=== PATIENT | female | born 1990 | race Caucasian/White ===

== ENCOUNTER 2018-06-07 14:04 | Emergency (ER) | payer BC ==
--- OUTSIDE RECORDS SUMMARY | 2018-06-07 15:55 | XMS REPORT | Continuity of Care Document ---
:1990 External Reference #:[id number] Author Name Dawna Combs Care Team Providers Name Role Phone Wm Davila III, MD Primary Care Physician Unavailable Payers Type Date Identification Numbers Payment Provider Subscriber Policy Number: [id number] Agusto Ledbetter PayID: [id number] [address] [address] [place] [address] Effective: 2016 Policy Number: [id number] Agusto Ledbetter Expires: 2018 PayID: [id number] [address] [address] [place] [address] Effective: 2014 Policy Number: [id number] BS Agusto Ledbetter Expires: 2016 PayID: [id number] [address] [address] [place] [address] Advance Directives Description No Information Available Problems Date Description Provider Status Onset: 07/21/2012 Disorder of ear Shelley Villar M.D. 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[place] [place] Tobacco Use Start: Unknown Never Smoked Cigarettes Smoking Status Reviewed: 05/10/18 Never Smoked Cigarettes ETOH Use Currently consumes alcohol 5 drinks/week Tobacco Use Start: Unknown Patient has never smoked Recreational Drug Use Denies Drug Use Exercise Type/Frequency 3 xper week, jogging or gym Allergies, Adverse Reactions, Alerts Date Description Reaction Status Severity Comments 06/30/2012 Amoxicillin Anaphylaxis, Contact dermatitis Active 09/01/2017 [place] Active Medications Medication Date Status Form Strength Qnty SIG Indications Ordering Provider Nitrofurantoin 05/10/ Active Capsules 100mg 10cap take one N39.0 Cindy Monohyd Macro 2019 s tablet MD Chadd every 12 hours IUD / Active Unknown 0000 Pantoprazole 07/26/ Hx Tablets DR 20mg 60tab take 2 K21.9 Leno Sodium 2018 - s tablets RAMONE Sweet 05/09/ by mouth 2019 one time daily Erythromycin 05/11/ Hx Tablets 500mg 90tab not Unknown Base 2016 - s taking 2015 Fluticasone 05/11/ Hx Suspension 50mcg/Act 16gm two Leno Propionate 2016 - sprays RAMONE Sweet 2017 nostril once daily Juab-Linyah 12/13/ Hx Tablets 0.25-35mg 28tab 1 by Shelley 2014 - -mcg s mouth Jian, 01/29/ every day M.D. 2015 Ortho-Cyclen 07/31/ Hx Tablets 0.25-35mg 30tab as V25.09 Shelley (28) 2014 - -mcg s directed Jian 12/13/ M.D. 2014 Trazodone HCL 03/09/ Hx Tablets 50mg 30tab /2 -1 780.52 Shelley 2012 - s tab po at Jian, 10/03/ bedtime M.D. 2013 prn Ortho Evra / Hx Patches 150-20mcg 1unit apply one Shelley 0000 - Weekly /24HR s patch Jian, 12/13/ weekly M.DHarrison 2014 for three weeks then off for one week then repeat Benadryl Allergy / Hx Tablets 25mg 1 q4 h Unknown 0000 - prn 2013 Vitamin B / Hx Tablets 1 by Unknown Complex 0000 - mouth 05/09/ every day 2019 Vitamin D3 /00/ Hx Unknown 0000 - 2016 Lo Loestrin Fe / Hx Tablets 1mg-10 Unknown 0000 - mcg / 10 mcg 2016 Nuvaring / Hx Ring 0.12-0.01 Grzegorz Nava 0000 - 5mg/24HR maria g, 05/09/ N.P. 2019 Nasacort Allergy / Hx Aerosol 55mcg/Act 2 spray Unknown 24HR 0000 - both nares 2019 once daily Xyzal Allergy / Hx Tablets 5mg 1 by Unknown 24HR 0000 - mouth every day 2019 Medications Administered in Office Medication Date Status Form Strength Qnty SIG Indications Ordering Provider Triamcinolone 07/14/ Administered Injection Zaneb (Kenalog) 2016 MD Meet PPD 04/28/ Administered Injection Nurse 2015 Visit A Triamcinolone 12/12/ Administered Injection Zaneb (Kenalog) 2015 MD Meet PPD 10/13/ Administered Injection Nurse 2016 Visit [facility] Immunizations CPT Code Status Date Vaccine Lot # [id number] Given 11/15/2015 Measles Mumps And Rubella MMR [id number] 81262 Given 10/18/2015 Measles Mumps And Rubella MMR [id number] 13293 Given 10/11/2015 Tetanus And Diptheria (Td) For Adult Use [id number] Preservative Free 52719 Given 12/20/2008 Hepatitis A Vaccine Adult Dosage 72496 Given 12/13/2007 Varicella (Chicken Pox) Immunization 22883 Given 12/13/2007 Hepatitis A Vaccine Adult Dosage 28653 Given 06/29/2007 Gardasil (HPV) 40901 Given 02/25/2007 Gardasil (HPV) 26005 Given 12/09/2006 Gardasil (HPV) 87744 Given 11/18/2004 DTaP Vaccine Younger Than 7 75575 Given 10/21/2004 Tdap - Tetanus/Diptheria/Acellular Pertussis 57811 Given 10/21/2004 Meningitis MCV4 MenACWY Meningococcal Conjugate Vaccine 92848 Given 01/02/1997 Varicella (Chicken Pox) Immunization 84922 Given 11/14/1996 IPV/Poliomyelitis Immunization 62665 Given 11/14/1996 Measles Mumps And Rubella MMR 33563 Given 03/19/1993 Hep B Pediatric/Adolescent 95561 Given 12/18/1992 Measles Mumps And Rubella MMR 09679 Given 12/18/1992 Hib Hboc Conjugate 4 Dose Schedule 54956 Given 10/16/1992 Hep B Pediatric/Adolescent 45830 Given 09/18/1992 Hep B Pediatric/Adolescent 36929 Given 05/22/1992 Hib Hboc Conjugate 4 Dose Schedule 77798 Given 03/20/1992 Hib Hboc Conjugate 4 Dose Schedule 30234 Given 01/17/1992 Hib Hboc Conjugate 4 Dose Schedule Vital Signs Date Vital Result Comment 05/10/2018 2:35pm Height 66 inches 5'6" Weight 156.00 lb Heart Rate 80 /min BP Systolic 116 mmHg BP Diastolic 70 mmHg Body Temperature 98.6 F O2 % BldC Oximetry 98 % BMI (Body Mass Index) 25.2 kg/m2 09/01/2017 8:40am Weight 163.50 lb Heart Rate 74 /min BP Systolic 107 mmHg BP Diastolic 72 mmHg Body Temperature 97.3 F O2 % BldC Oximetry 100 % 07/26/2017 9:00am Weight 162.75 lb Heart Rate 74 /min BP Systolic 112 mmHg BP Diastolic 62 mmHg Body Temperature 97.0 F O2 % BldC Oximetry 99 % 03/03/2017 9:31am Height 66 inches 5'6" Weight 155.50 lb Heart Rate 71 /min BP Systolic Sitting 98 mmHg BP Diastolic Sitting 68 mmHg O2 % BldC Oximetry 98 % BMI (Body Mass Index) 25.1 kg/m2 09/17/2016 7:54am Height 66 inches 5'6" Weight 155.00 lb Heart Rate 72 /min BP Systolic 102 mmHg BP Diastolic 68 mmHg Respiratory Rate 15 /min Pain Level 6 BMI (Body Mass Index) 25.0 kg/m2 07/14/2016 9:59am Height 66 inches 5'6" Weight 155.00 lb Respiratory Rate 14 /min Pain Level 5 BMI (Body Mass Index) 25.0 kg/m2 01/30/2016 4:55pm Weight 153.00 lb Heart Rate 79 /min BP Systolic Sitting 146 mmHg BP Diastolic Sitting 80 mmHg Body Temperature 98.6 F O2 % BldC Oximetry 98 % 12/13/2015 8:21am Height 65 inches 5'5" Weight 150.00 lb Pain Level 4 BMI (Body Mass Index) 25.0 kg/m2 11/15/2015 4:09pm Weight 150.00 lb Heart Rate 80 /min BP Systolic Sitting 129 mmHg BP Diastolic Sitting 81 mmHg Body Temperature 97.6 F 10/11/2015 9:35am Height 66 inches 5'6" Weight 149.00 lb Heart Rate 74 /min BP Systolic Sitting 110 mmHg BP Diastolic Sitting 68 mmHg Body Temperature 95.5 F O2 % BldC Oximetry 98 % BMI (Body Mass Index) 24.0 kg/m2 05/20/2015 4:47pm Height 65.25 inches 5'5.25" Weight 152.00 lb Heart Rate 73 /min BP Systolic Sitting 108 mmHg BP Diastolic Sitting 76 mmHg Body Temperature 98.1 F O2 % BldC Oximetry 98 % BMI (Body Mass Index) 25.1 kg/m2 12/13/2014 2:58pm Height 65.25 inches 5'5.25" Weight 155.00 lb Heart Rate 84 /min BP Systolic 118 mmHg BP Diastolic 70 mmHg Body Temperature 98.6 F O2 % BldC Oximetry 98 % BMI (Body Mass Index) 25.6 kg/m2 07/31/2014 8:56am Height 65.25 inches 5'5.25" Weight 150.75 lb Heart Rate 80 /min BP Systolic Sitting 110 mmHg BP Diastolic Sitting 60 mmHg Respiratory Rate 12 /min Body Temperature 96.4 F O2 % BldC Oximetry 99 % BMI (Body Mass Index) 24.9 kg/m2 12/12/2013 11:01am Height 65.25 inches 5'5.25" Weight 139.25 lb Heart Rate 91 /min BP Systolic Sitting 102 mmHg BP Diastolic Sitting 63 mmHg BMI (Body Mass Index) 23.0 kg/m2 10/03/2013 4:18pm Height 65.25 inches 5'5.25" Weight 138.00 lb Heart Rate 81 /min BP Systolic Sitting 138 mmHg BP Diastolic Sitting 69 mmHg BMI (Body Mass Index) 22.8 kg/m2 03/09/2013 3:47pm Weight 140.00 lb Heart Rate 81 /min BP Systolic Sitting 118 mmHg BP Diastolic Sitting 72 mmHg 02/03/2013 11:35am Weight 138.00 lb Heart Rate 78 /min BP Systolic Sitting 100 mmHg BP Diastolic Sitting 78 mmHg 07/21/2012 2:10pm Height 65 inches 5'5" Weight 140.00 lb Heart Rate 78 /min BP Systolic Sitting 100 mmHg BP Diastolic Sitting 70 mmHg BMI (Body Mass Index) 23.3 kg/m2 06/30/2012 2:38pm Height 65 inches 5'5" Weight 139.00 lb Heart Rate 79 /min BP Systolic Sitting 112 mmHg BP Diastolic Sitting 61 mmHg BMI (Body Mass Index) 23.1 kg/m2 Results Test Date Facility Test Result H/L Range Note Ua Routine 05/10/2018 [facility] Ua Specific [place] 1.000 Ua PH 7 Ua Color light yellow Ua Appera clear Ua WBC neg Ua Protein neg Ua Glucose neg Ua Ketones neg Ua Bilirubin neg Ua Urobilinogen neg Ua Nitrite neg Ua Occult Blood neg Laboratory test 10/27/2017 [facility] Surgical SEE RESULT 1 , [address] [place] [address] [phone] CBC Auto Diff 07/26/2017 [facility] White Blood 6.1 10^3/uL N 3.5-[address] Count 0.8 [place] [address] [phone] Red Blood Count 4.58 10^6/uL N 4.0-5.4 Hemoglobin 14.2 g/dL N 12.0-16.0 Hematocrit 42 % N 35-47 Mean Corpuscular Volume 92 fL N 80-97 Mean Corpuscular Hemoglobin 31 pg N 27-31 Mean Corpuscular HGB Conc 34 g/dL N 31-36 Red Cell Distribution Width 13 % N 10.5-15 Platelet Count 275 10^3/uL N 150-450 Mean Platelet Volume 8.8 um3 N 7.4-10.4 Abs Neutrophils 3.0 10^3/uL N 1.5-7.7 Abs Lymphocytes 2.4 10^3/uL N 1.0-4.8 Abs Monocytes 0.6 10^3/uL N 0-0.8 Abs Eosinophils 0.1 10^3/uL N 0-0.6 Abs Basophils 0 10^3/uL N 0-0.2 Abs Nucleated RBC 0 10^3/uL Granulocyte % 49.3 % N 38-83 Lymphocyte % 38.5 % N 25-47 Monocyte % 10.0 % High 0-7 Eosinophil % 1.6 % N 0-6 Basophil % 0.6 % N 0-2 Nucleated Red Blood Cells % 0.1 Comp Metabolic Panel 07/26/2017 [facility] Sodium 137 mmol/L N 133-[address] [place] [address] [phone] Potassium 4.4 mmol/L N 3.5-5.0 Chloride 107 mmol/L N 101-111 Co2 Carbon Dioxide 25 mmol/L N 22-32 Anion Gap 5 mmol/L N 2-11 Glucose 89 mg/dL N 70-100 Blood Urea Nitrogen 12 mg/dL N 6-24 Creatinine 0.77 mg/dL N 0.51-0.95 BUN/Creatinine Ratio 15.6 N 8-20 Calcium 9.4 mg/dL N 8.6-10.3 Total Protein 7.0 g/dL N 6.4-8.9 Albumin 4.0 g/dL N 3.2-5.2 Globulin 3.0 g/dL N 2-4 Albumin/Globulin Ratio 1.3 N 1-3 Total Bilirubin 0.60 mg/dL N 0.2-1.0 Alkaline Phosphatase 59 U/L N 34-104 Alt 21 U/L N 7-52 Ast 24 U/L N 13-39 Egfr Non- 91.3 >60 Egfr 117.5 >60 4 Laboratory 07/26/2017 [facility] TSH (Thyroid Stim 2.49 N 0.34 -5.60 5 test finding Horm) mcIU/[place] [address] [phone] Lipid Profile 07/26/2017 [facility] Triglycerides 103 mg/dL 6 (Trig/Chol/HDL ) [place] [address] [phone] Cholesterol 170 mg/dL 7 HDL Cholesterol 60.0 mg/dL 8 LDL Cholesterol 89 mg/dL 9 Iron & Iron Binding 03/31/2016 [facility] Iron 69 g/dL N 50- [address] [place] [address] [phone] Unsaturated Iron Binding 299 g/dL N Total Iron Binding Capacity 368 g/dL N 250-450 % Iron Saturation 19 % N 15-55 Laboratory test 03/31/2016 [facility] T3 Free 3.30 pg/mL N 2.5 -3.9 [place] [address] [phone] T3 Total 1.16 ng/mL N 0.87-1.78 Ferritin 67.1 ng/mL N 11-307 Folic Acid (Folate) > 20.00 ng/mL N >3.99 Vitamin B12 316 pg/mL N 180-914 10 Vitamin D Total 25(Oh) 33.6 ng/mL N 30-50 Homocysteine 5 mcmol/L N 11 CBC Auto Diff 01/31/2016 [facility] White Blood 7.6 10^3/uL N 3.5-10.8 [place] [address] [phone] Red Blood Count 4.43 10^6/uL N 4.0-5.4 Hemoglobin 13.9 g/dL N 12.0-16.0 Hematocrit 41 % N 35-47 Mean Corpuscular Volume 93 fL N 80-97 Mean Corpuscular Hemoglobin 31 pg N 27-31 Mean Corpuscular HGB Conc 34 g/dL N 31-36 Red Cell Distribution Width 13 % N 10.5-15 Platelet Count 277 10^3/uL N 150-450 Mean Platelet Volume 9 um3 N 7.4-10.4 Abs Neutrophils 3.5 10^3/uL N 1.5-7.7 Abs Lymphocytes 3.3 10^3/uL N 1.0-4.8 Abs Monocytes 0.7 10^3/uL N 0-0.8 Abs Eosinophils 0.1 10^3/uL N 0-0.6 Abs Basophils 0.1 10^3/uL N 0-0.2 Abs Nucleated RBC 0 10^3/uL N Granulocyte % 46.0 % N 38-83 Lymphocyte % 42.7 % N 25-47 Monocyte % 9.5 % High 1-9 Eosinophil % 1.1 % N 0-6 Basophil % 0.7 % N 0-2 Nucleated Red Blood Cells % 0 N Comp Metabolic Panel 01/31/2016 [facility] Sodium 137 mmol/L N 133-[address] [place] [address] [phone] Potassium 3.9 mmol/L N 3.5-5.0 Chloride 104 mmol/L N 101-111 Co2 Carbon Dioxide 27 mmol/L N 22-32 Anion Gap 6 mmol/L N 2-11 Glucose 85 mg/dL N 70-100 Blood Urea Nitrogen 14 mg/dL N 6-24 Creatinine 0.84 mg/dL N 0.51-0.95 BUN/Creatinine Ratio 16.7 N 8-20 Calcium 9.3 mg/dL N 8.6-10.3 Total Protein 7.2 g/dL N 6.4-8.9 Albumin 4.2 g/dL N 3.2-5.2 Globulin 3.0 g/dL N 2-4 Albumin/Globulin Ratio 1.4 N 1-3 Total Bilirubin 0.50 mg/dL N 0.2-1.0 Alkaline Phosphatase 54 U/L N 34-104 Alt 20 U/L N 7-52 Ast 20 U/L N 13-39 Egfr Non- 83.3 N >60 Egfr 107.1 N >60 12 Laboratory test 01/31/2016 [facility] Erythrocyte Sed 3 mm/Hr N 0-[address] [place] [address] [phone] Laboratory test 01/31/2016 [facility] C Reactive < 1.00 N < 5.00 [address] Protein mg/[place] [address] [phone] Lyme Disease Serology Negative N Negative 14 Free T4 (Free Thyroxine) 0.95 ng/dL N 0.61-1.12 TSH (Thyroid Stim Horm) 1.31 mcIU/mL N 0.34-5.60 Urinalysis Profile 01/31/2016 [facility] Urine Color Yellow N [address] [place] [address] [phone] Urine Appearance Cloudy N Urine Specific [place] 1.011 N 1.010-1.030 Urine pH 7.0 N 5-9 Urine Urobilinogen Negative N Negative Urine Ketones Negative N Negative Urine Protein Negative N Negative Urine Leukocytes Negative N Negative Urine Blood Negative N Negative Urine Nitrite Negative N Negative Urine Bilirubin Negative N Negative Urine Glucose Negative N Negative Connective Tissue 01/31/2016 [facility] Anti-Nuclear 0.3 U N [address] [place] [address] [phone] Cyclic Citrullinated Peptide <15.6 U N 16 Interpretation See Comment N 17 Varicella 10/14/2015 [facility] Varicella-Zoster IgG Positive N 18 Zoster Igg AB [address] [place] [address] [phone] Varicella IgG Antibody Index 1.8 N 19 Rubeola Measles 10/14/2015 [facility] Rubeola (Measles) Negative N 20 Igg AB [address] [place] [address] [phone] Rubeola IgG Antibody Index 0.8 N 21 Mumps Virus AB 10/14/2015 [facility] Mumps Virus IgG Positive N 22 Igg & Igm [address] [place] [address] [phone] Mumps IgG Antibody Index 2.7 N 23 Mumps Virus IgM Antibody Negative N Negative Mumps IgM Antibody Index 0.09 N 0.00-0.79 Laboratory 10/14/2015 [facility] Rubella Screen Immune N Immune test finding [address] IU/[place] [address] [phone] Celiac Panel 12/13/2014 Tissue <1.2 U/mL N 24 Transglutaminase IgA Ab Immunoglobulin A 220 mg/dL N 61 - 356 Celiac Interpretation See Comment N 25 Laboratory test 12/13/2014 [facility] Cytology SEE RESULT BELOW [address] [place] [address] [phone] Gardnerella/Yeast: Vaginal Dna SEE RESULT BELOW 27 Trichomonas Vaginalis Rna Negative N Negative 28 GC/Chlamydia 12/13/2014 [facility] Chlamydia Negative N Negative Amplified Rna [address] [place] [address] [phone] Neisseria gonorrhoeae (GC) Rna Negative N Negative 29 Laboratory test 12/13/2014 HIV 1&2 AB Nonreactive N Nonreactive 30 finding Self Referred Laboratory test 12/07/2014 [facility] Vitamin D 30.7 ng/mL N 30-[address] Total 25(Oh) [place] [address] [phone] CBC Auto Diff 09/12/2014 [facility] White Blood 6.0 10^3/uL N 4.8-10.[address] [place] [address] [phone] Red Blood Count 4.41 10^6/uL N 4.0-5.4 Hemoglobin 14.3 g/dL N 12.0-16.0 Hematocrit 42 % N 35-47 Mean Corpuscular Volume 94 fL N 80-97 Mean Corpuscular Hemoglobin 32 pg High 27-31 Mean Corpuscular HGB Conc 35 g/dL N 31-36 Red Cell Distribution Width 13 % N 10.5-15 Platelet Count 241 10^3/uL N 150-450 Mean Platelet Volume 10 um3 N 7.4-10.4 Abs Neutrophils 2.8 10^3/uL N 1.5-7.7 Abs Lymphocytes 2.3 10^3/uL N 1.0-4.8 Abs Monocytes 0.6 10^3/uL N 0-0.8 Abs Eosinophils 0.2 10^3/uL N 0-0.6 Abs Basophils 0.1 10^3/uL N 0-0.2 Abs Nucleated RBC 0 10^3/uL N Granulocyte % 46.9 % N 38-83 Lymphocyte % 38.9 % N 25-47 Monocyte % 10.4 % High 1-9 Eosinophil % 2.7 % N 0-6 Basophil % 1.1 % N 0-2 Nucleated Red Blood Cells % 0.1 N Comp Metabolic Panel 09/12/2014 [facility] Sodium 138 mmol/L N 133-[address] [place] [address] [phone] Potassium 4.2 mmol/L N 3.5-5.0 Chloride 106 mmol/L N 101-111 Co2 Carbon Dioxide 27 mmol/L N 22-32 Anion Gap 5 mmol/L N 2-11 Glucose 88 mg/dL N 70-100 Blood Urea Nitrogen 14 mg/dL N 6-24 Creatinine 0.85 mg/dL N 0.51-0.95 BUN/Creatinine Ratio 16.5 N 8-20 Calcium 9.4 mg/dL N 8.6-10.3 Total Protein 6.8 g/dL N 6.4-8.9 Albumin 4.1 g/dL N 3.2-5.2 Globulin 2.7 g/dL N 2-4 Albumin/Globulin Ratio 1.5 N 1-3 Total Bilirubin 0.60 mg/dL N 0.2-1.0 Alkaline Phosphatase 52 U/L N 34-104 Alt 14 U/L N 7-52 Ast 16 U/L N 13-39 Egfr Non- 83.6 N >60 Egfr 107.6 N >60 31 Iron & Iron Binding 09/12/2014 [facility] Iron 143 g/dL N 50 -[address] [place] [address] [phone] Unsaturated Iron Binding 234 g/dL N Total Iron Binding Capacity 377 g/dL N 250-450 % Iron Saturation 38 % N 15-55 Laboratory test 09/12/2014 [facility] CRP High 1.90 mg/L N [address] [place] [address] [phone] TSH (Thyroid Stimulating Horm) 2.20 ?IU/mL N 0.34-5.60 Free T4 0.74 ng/mL N 0.61-1.12 Free T3 2.90 pg/mL N 2.5-3.9 Ferritin 54.1 ng/mL N 11-307 Folate 13.16 ng/mL N >3.99 Vitamin B12 292 pg/mL N 180-914 33 Vitamin D Total 25(Oh) 27.2 ng/mL Low 30-50 Total T3 1.14 ng/mL N 0.87-1.78 Laboratory 12/12/2013 [facility] Cytology RUN DATE: 34 test finding [address] 12/14/ <[place] [address] NOTE> [phone] HIV 1/2 AB 12/12/2013 [facility] HIV 1 2 Nonreactive N Nonreactive [address] [place] [address] [phone] Laboratory 02/03/2013 [facility] TSH (Thyroid 1.02 miu/mL 0.34-5.60 test finding [address] [place] [address] Horm) [phone] CBC Auto Diff 02/03/2013 [facility] White Blood 7.7 10^3/uL 4.8-10.[address] [place] [address] [phone] Red Blood Count 4.37 10^6/uL 4.0-5.4 Hemoglobin 13.8 g/dL 12.0-16.0 Hematocrit 40 % 35-47 Mean Corpuscular Volume 93 fL 80-97 Mean Corpuscular Hemoglobin 32 pg High 27-31 Mean Corpuscular HGB Conc 34 g/dL 31-36 Red Cell Distribution Width 12 % 10.5-15 Platelet Count 225 10^3/uL 150-450 Mean Platelet Volume 10 um3 7.4-10.4 Abs Neutrophils 4.0 10^3/uL 1.5-7.7 Abs Lymphocytes 2.5 10^3/uL 1.0-4.8 Abs Monocytes 0.9 10^3/uL High 0-0.8 Abs Eosinophils 0.2 10^3/uL 0-0.6 Abs Basophils 0.1 10^3/uL 0-0.2 Abs Nucleated RBC 0 10^3/uL Granulocyte % 52.4 % 38-83 Lymphocyte % 32.4 % 25-47 Monocyte % 12.2 % High 1-9 Eosinophil % 2.1 % 0-6 Basophil % 0.9 % 0-2 Nucleated Red Blood Cells % 0 Laboratory test 07/21/2012 [facility] Affirm Vaginal (SEE NOTE) [address] [place] [address] [phone] Cytology RUN DATE: 07/22/ SEE NOTE> 37 1 [id number] 2 SEE RESULT BELOW Name: ALBINO LEDBETTER : [address]: Khadra Figueroa MD Acct: [id number] Unit: [id number] AGE: 27 Location: [facility] Re10/27/17 SEX: F Status: REG REF SPEC: [id number] FREDDIE: 10/27/17- SUBM DR: Khadra Figueroa MD REQ: [id number] RECD: 10/27/17-1305 STATUS: SONYA MORLEY DR: Leno Sweet [employer] _ ORDERED: LEVEL 4/2 COMMENTS: [id number] FINAL DIAGNOSIS 1. Skin, right anterior distal thigh, biopsy: -- Compound melanocytic nevus with architectural disorder and moderate cytologic atypia. -- The lesion is excised in the planes of sectioning examined. 2. Skin, right lateral breast, biopsy: -- Intradermal melanocytic nevus. -- Lesional cells focally extend to the biopsy base. 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 The specimen is received in formalin labeled, Right Anterior Distal Thigh, and consists of a 0.9 by up to 0.7 cm chang-pink ovoid skin shave with a central 0.4 x 0.3 cm variegated chang-brown macule. The specimen is inked, serially sectioned and entirely submitted in one cassette. 2. The specimen is received in formalin labeled, Right Lateral Breast, and consists of a 1.1 x 0.9 cm mottled chang-white ovoid wrinkled skin shave with a central chang- brown ill-defined lesion measuring up to 0.3 cm. The specimen is inked, serially sectioned and entirely submitted in one cassette. Signed by and Reported on: Marianne Bueno MD 10/28/17 1115 END OF REPORT DEPARTMENT OF PATHOLOGY, [address] [place] [address] Matias Chapin M.D. Director [facility] # [id number] 3 FASTING 10 HOUR 4 Because ethnic data is not always readily available, this report includes an eGFR for both -Americans and non- Americans. The National Kidney Disease Education Program (NKDEP) does not endorse the use of the MDRD equation for patients that are not between the ages of 18 and 70, are , have extremes of body size, muscle mass, or nutritional status, or are non- or non-. According to the National Kidney Foundation, irrespective of diagnosis, the stage of the disease is based on the level of kidney function: Stage Description GFR(mL/min/1.73 m(2)) 1 Kidney damage with normal or decreased GFR 90 2 Kidney damage with mild decrease in GFR 60-89 3 Moderate decrease in GFR 30-59 4 Severe decrease in GFR 15-29 5 Kidney failure <15 (or dialysis) 5 FASTING 10 HOUR 6 Desirable: <150 Borderline High: 150-199 High: 200-499 Very High: >500 7 Desirable: <200 Borderline High: 200-239 High: >239 8 Low: <40 Desirable: 40-60 High: >60 9 Desirable: <100 Near Optimal: 100-129 Borderline High: 130-159 High: 160-189 Very High: >189 10 Normal Range 180 to 914 Indeterminate Range 145 to 180 Deficient Range <145 11 REFERENCE VALUE <=13 (Fasting) Test Performed by: [place] [address] [employer]: Galen Dee II, M.D., Ph.D. 12 Because ethnic data is not always readily available, this report includes an eGFR for both -Americans and non- Americans. The National Kidney Disease Education Program (NKDEP) does not endorse the use of the MDRD equation for patients that are not between the ages of 18 and 70, are , have extremes of body size, muscle mass, or nutritional status, or are non- or non-. According to the National Kidney Foundation, irrespective of diagnosis, the stage of the disease is based on the level of kidney function: Stage Description GFR(mL/min/1.73 m(2)) 1 Kidney damage with normal or decreased GFR 90 2 Kidney damage with mild decrease in GFR 60-89 3 Moderate decrease in GFR 30-59 4 Severe decrease in GFR 15-29 5 Kidney failure <15 (or dialysis) 13 Acute inflammation: >10.00 14 Serologic response to B. burgdorferi infection is not detected, but cannot rule out early infection during which low or undetectable antibody levels to B. burgdorferi may be present. If clinically indicated, a new serum specimen should be submitted in 7-14 days. Test Performed by: [place] [id number] [employer]: Galen Dee II, M.D., Ph.D. 15 REFERENCE VALUE <=1.0 (Negative) 16 REFERENCE VALUE <20.0 (Negative) 17 Tests for antibodies to dsDNA and HAYLEY antigens are not performed automatically unless the FRIDA result is > or= 3.0 U. Studies performed at [facility] indicate that positive FRIDA results <3.0 U are rarely accompanied by positive second order tests. Test Performed by: [place] [address] [employer]: Galen Dee II, M.D., Ph.D. 18 Results suggest response to immunization or prior exposure to the virus. REFERENCE VALUE Vaccinated: Positive (>=1.1 AI) Unvaccinated: Negative (<=0.8 AI) 19 Test Performed by: [place] [address] [employer]: Galen Dee II, M.D., Ph.D. 20 REFERENCE VALUE Vaccinated: Positive (>=1.1 AI) Unvaccinated: Negative (<=0.8 AI) 21 Test Performed by: [facility] [place] [place] [address] [employer]: Galen Dee II, M.D., Ph.D. 22 Results suggest response to immunization or prior exposure to the virus. REFERENCE VALUE Vaccinated: Positive (>=1.1 AI) Unvaccinated: Negative (<=0.8 AI) 23 Test Performed by: [place] [address] [employer]: Galen Dee II, M.D., Ph.D. 24 REFERENCE VALUE <4.0 (Negative) Test Performed by: [place] [address] [employer]: Galen Dee II, M.D., Ph.D. 25 Negative serology. Celiac disease unlikely. However, approximately 10% of patients with celiac disease are seronegative. Also, patients who are already adhering to a gluten-free diet may be seronegative. If celiac disease is highly clinically suspected, consider HLA-DQ typing. Test Performed by: [place] [address] [employer]: Galen Dee II, M.D., Ph.D. 26 SEE RESULT BELOW Name: ALBINO LEDBETTER : [address]: Shelley Villar MD Acct: [id number] Unit: [id number] AGE: 24 Location: [facility] Re12/13/14 SEX: F Status: REG REF SPEC: [id number] FRDEDIE: 12/13/14-1522 [facility] DR: Shelley Villar MD REQ: [id number] RECD: 12/13/14 STATUS: SOUT _ ORDERED: IMAGE ANALYSIS, PAP SM PATH REV FINAL DIAGNOSIS EPITHELIAL CELL ABNORMALITIES Low grade squamous intraepithelial lesion (LSIL) Fungal organisms morphologically consistent with Melissa species A. Ectocervical/Endocervical Specimen Adequacy: Satisfactory of evaluation Transformation zone component identified Patient Information: HPV: Thin Layer Pap Test w/reflex to high risk HPV RNA testing when ASCUS Actual Specimen Date: 12/13/14 LMP If Unknown: 11/14 ?: N Post Menopausal?: N Hysterectomy?: N Previous Abnormal Pap Smears?:N Signed (signature on file) Marianne Bueno MD 9134 This Pap test was evaluated with the assistance of the [employer] Test Imaging System. Due to cytologic findings at the agricultural technician microscope, comprehensive manual rescreening by a Bridge Contractor may be required. The Pap Smear is a screening test designed to aid in the detection of premalignant and malignant conditions of the uterine cervix. It is not a diagnostic procedure and should not be used as the sole means of detecting cervical cancer. Both false- positive and false- negative reports do occur. Depending on your risk status, a Pap smear should be obtained and evaluated every 1-3 years. END OF REPORT * ML=Testing performed at Main Lab DEPARTMENT OF PATHOLOGY, [address] [place] [address] Matias Chapin M.D. Director [facility] # [id number] 27 SEE RESULT BELOW Name: ALBINO LEDBETTER : [address]: Shelley Villar MD Acct: [id number] Unit: [id number] AGE: 24 Location: [facility] Re12/13/14 SEX: F Status: REG REF SPEC: [id number] FREDDIE: 12/13/14-1522 [facility] DR: Shelley Villar MD REQ: [id number] RECD: 12/13/14 STATUS: COMP _ SOURCE: VAGINAL SPDESC: ORDERED: RadhaYeast DNA Procedure Result Verified Site Gardnerella/Yeast: Vaginal DNA Final 12/14/14- 1147 ML Organism 1 Negative Gardnerella Organism 2 POSITIVE MELISSA The presence of G. vaginalis, although suggestive, is not diagnostic for bacterial vaginosis. Results should be interpreted in conjuction with other clinical and laboratory data available. Women with vaginal discharge should be evaluated for risk factors of cervicitis and pelvic inflammatory disease, toxic shock syndrome (S.aureus), and if present, evaluated for organisms not included in this assay such as N. gonorrhoeae, C. trachomatis, Mobiluncus, Mycoplasma and/or Prevotella. Mixed infections may occur. The performance of this test on patient specimens collected during or immediately after antimicrobial therapy is unknown. The presence or absence of Melissa species, or G. vaginalis cannot be used as a test for therapeutic success or failure. * ML - MAIN LAB ([facility]) . END OF REPORT * ML=Testing performed at Main Lab DEPARTMENT OF PATHOLOGY, [address] [place] [address] Matias Chapin M.D. Director [facility] # [id number] 28 GC/Chlamydia Source?: Thin Prep Trichomonas Source: Thin Prep 29 Female urine specimens have been self-validated by [facility] and have been granted conditional assay approval by [facility]. 30 It is recognized that currently available assays for the detection of antibodies to HIV-1 and/or HIV-2 may not detect all infected individuals. HIV antibodies may be undetectable in some stages of the infection and in some clinical conditions. The performance of this assay has not been established for populations of infants or children. Assayed by Chemiluminescence Microparticle Immunoassay on the Siemens Advia Centaur CP. Values obtained with different methods or kits cannot be used interchangeably.The diagnostic specificity of the [employer] Centaur 1/O/2 Enhanced assay in the low risk population was 99.90% (6052/6058) with a 95% confidence interval of 99.78 to 99.96%. 31 Because ethnic data is not always readily available, this report includes an eGFR for both -Americans and non- Americans. The National Kidney Disease Education Program (NKDEP) does not endorse the use of the MDRD equation for patients that are not between the ages of 18 and 70, are , have extremes of body size, muscle mass, or nutritional status, or are non- or non-. According to the National Kidney Foundation, irrespective of diagnosis, the stage of the disease is based on the level of kidney function: Stage Description GFR(mL/min/1.73 m(2)) 1 Kidney damage with normal or decreased GFR 90 2 Kidney damage with mild decrease in GFR 60-89 3 Moderate decrease in GFR 30-59 4 Severe decrease in GFR 15-29 5 Kidney failure <15 (or dialysis) 32 Low risk: <1.00 Average risk: 1.00-3.00 High risk: >3.00 33 Normal Range 180 to 914 Indeterminate Range 145 to 180 Deficient Range <145 34 RUN DATE: 12/14/13 [facility] LIVE PAGE 1 RUN TIME: [address] [place] [address] Specimen Inquiry Name: ALBINO LEDBETTER KRISSY : [address]: Shelley Villar MD Acct: [id number] Unit: [id number] AGE: 23 Location: [facility] Re12/12/13 SEX: F Status: REG REF SPEC: [id number] FREDDIE: 12/12/13-1132 [facility] DR: Shelley Villar MD REQ: [id number] RECD: 12/12/13-1921 STATUS: SOUT _ ORDERED: IMAGE ANALYSIS, PAP SM PATH REV FINAL DIAGNOSIS Negative for Intraepithelial lesion or Malignancy Reactive cellular changes associated with Inflammation (includes typical repair) A. Ectocervical/Endocervical Specimen Adequacy: Satisfactory of evaluation Transformation zone component identified Patient Information: HPV: Thin Layer Pap Test w/reflex to high risk HPV DNA testing when ASCUS Actual Specimen Date: 12/12/13 Last Menstrual Date: 12/06/13 ?: N Post Menopausal?: N Hysterectomy?: N Previous Abnormal Pap Smears?:N Signed (signature on file) Matias Chapin MD 1100 This Pap test was evaluated with the assistance of the [employer] Test Imaging System. Due to cytologic findings at the agricultural technician microscope, comprehensive manual rescreening by a Bridge Contractor may be required. The Pap Smear is a screening test designed to aid in the detection of premalignant and malignant conditions of the uterine cervix. It is not a diagnostic procedure and should not be used as the sole means of detecting cervical cancer. Both false- positive and false- negative reports do occur. Depending on your risk status, a Pap smear shoudl be obtained and evaluated every 1-3 years. END OF REPORT * ML=Testing performed at Main Lab DEPARTMENT OF PATHOLOGY, [address] [place] [address] Matias Chapin M.D. Director [facility] # [id number] 35 It is recognized that currently available assays for the detection of antibodies to HIV-1 and/or HIV-2 may not detect all infected individuals. HIV antibodies may be undetectable in some stages of the infection and in some clinical conditions. The performance of this assay has not been established for populations of infants or children. Assayed by Chemiluminescence Microparticle Immunoassay on the Siemens Advia Centaur CP. Values obtained with different methods or kits cannot be used interchangeably.The diagnostic specificity of the [employer] Centaur 1/O/2 Enhanced assay in the low risk population was 99.90% (6052/6058) with a 95% confidence interval of 99.78 to 99.96%. 36 RUN DATE: 07/22/12 [facility] LIVE PAGE 1 RUN TIME: [address] [place] [address] Specimen Inquiry Name: ALBINO LEDBETTER : [address]: Shelley Villar MD Acct: [id number] Unit: [id number] AGE: 21 Location: [facility] Re07/21/12 SEX: F Status: REG REF SPEC: [id number] FREDDIE: 07/21/12-1504 [facility] DR: Shelley Villar MD REQ: [id number] RECD: 07/21/12 STATUS: COMP OTHR DR: Josi Wood MD _ SOURCE: VAGINAL [facility]: ORDERED: Affirm QUERIES: Medent Number [id number] Procedure Result Verified Site Affirm Vaginal DNA Probe Final 07/22/12- 1024 ML Trichomonas Negative Gardnerella Negative Melissa Negative The presence of G. vaginalis, although suggestive, is not diagnostic for bacterial vaginosis. Results should be interpreted in conjunction with other clinical and laboratory data available. Women with vaginal discharge should be evaluated for risk factors of cervicitis and pelvic inflammatory disease, toxic shock syndrome (S.aureus), and if present, evaluated for organisms not included in this assay such as N. gonorrhoeae, C. trachomatis, Mobiluncus, Mycoplasma and/or Prevotella. Mixed infections may occur. The performance of this test on patient specimens collected during or immediately after antimicrobial therapy is unknown. The presence or absence of Melissa species, G. vaginalis or T. vaginalis cannot be used as a test for therapeutic success or failure. END OF REPORT * ML=Testing performed at Main Lab DEPARTMENT OF PATHOLOGY, [facility] [address] [place], [place] [address] Matias Chapin M.D. Director [facility] Permit #[id number] 37 RUN DATE: 07/22/12 [facility] LIVE PAGE 1 RUN TIME: [address] [place] [address] Specimen Inquiry Name: ALBINO LEDBETTER KRISSY : [address]: Shelley Villar MD Acct: [id number] Unit: [id number] AGE: 21 Location: [facility] Re07/21/12 SEX: F Status: REG REF SPEC: [id number] FREDDIE: 07/21/12-1504 [facility] DR: Shelley Villar MD REQ: [id number] RECD: 07/21/124044 STATUS: SOUT _ ORDERED: IMAGE ANALYSIS FINAL DIAGNOSIS Negative for Intraepithelial lesion or Malignancy A. Ectocervical/Endocervical Specimen Adequacy: Satisfactory of evaluation Transformation zone component identified Patient Information: HPV: Thin Layer Pap Test w/reflex to high risk HPV DNA testing when ASCUS Actual Specimen Date: 07/21/12 Last Menstrual Date: 07/01/12 IUD: N ?: N Post Menopausal?: N Hysterectomy?: N Previous Abnormal Pap Smears?:N Signed (signature on file) Rayray MoeRYLAN (ASCP) 07/22 1548 This Pap test was evaluated with the assistance of the [employer] Test Imaging System. Due to cytologic findings at the agricultural technician microscope, comprehensive manual rescreening by a Bridge Contractor may be required. The Pap Smear is a screening test designed to aid in the detection of premalignant and malignant conditions of the uterine cervix. It is not a diagnostic procedure and should not be used as the sole means of detecting cervical cancer. Both false- positive and false- negative reports do occur. Depending on your risk status, a Pap smear shoudl be obtained and evaluated every 1-3 years. END OF REPORT * ML=Testing performed at Main Lab DEPARTMENT OF PATHOLOGY, [address] [place] [address] Matias Chapin M.D. Director [facility] Permit #[id number] Procedures Date Code Description Status 07/14/201610162 Inject/Drain Joint/Bursa Major W/O US Completed 03/12/2016 62699 Holter Monitor Review (24 hr)dr linn & interp only Completed 03/09/2016 05175 ECG Monitor/Recording W/Visual Superimposition Scanning Completed 12/13/2015 38327 Inject/Drain Joint/Bursa Major W/O US Completed Encounters Type Date Location Provider Dx Diagnosis Office Visit 09/01/2017 Sudheer Sweet NP K21.9 Gastro- esophageal 8:40a Medicine - reflux disease [place] without esophagitis J30.89 Other allergic rhinitis Office Visit 07/26/2017 9:00a Sudheer Sweet J30.89 Other allergic Medicine - [employer] rhinitis Lia K21.9 Gastro-esophageal reflux disease without esophagitis R11.0 Nausea Z13.220 Encounter for screening for lipoid disorders Office Visit 03/03/2017 9:40a [facility] Internal Leno Sweet, Z00.00 Encntr for Medicine - [employer] general adult [place] medical exam w/o abnormal findings Z13.220 Encounter for screening for lipoid disorders Z13.1 Encounter for screening for diabetes mellitus Office Visit 09/17/2016 8:00a Orthopedic Austyn Dsouza M75.42 Impingement Services Of syndrome of left C.M.A. shoulder S46.102A Unsp injury of [facility]fasc/tend long hd bicep, left arm, init Office Visit 07/14/2016 10:00a Orthopedic Austyn Dsouza M75.42 Impingement Services Of syndrome of left C.M.A. shoulder S46.102A Unsp injury of musc/fasc/tend long hd bicep, left arm, init M75.22 Bicipital tendinitis, left shoulder Office Visit 01/30/2016 4:20p [facility] Internal Wm Acevedo R53.82 Chronic fatigue, Kristi Davila M.D. unspecified [place] H81.399 Other peripheral vertigo, unspecified ear Office Visit 12/13/2015 8:30a Orthopedic Waldemar Estrella75.42 Impingement Services Of syndrome of left C.M.A. shoulder S46.102A Unsp injury of musc/fasc/tend long hd bicep, left arm, init M75.22 Bicipital tendinitis, left shoulder Office Visit 11/15/2015 4:00p [facility] Internal Jayme S46.092A [facility]j [facility]veronica Shore M.D. the rotator cuff [place] of left shoulder, init Z23 Encounter for immunization Office Visit 10/11/2015 9:40a [facility] Internal Leno Sweet, Z02.0 Encounter for exam Medicine - [employer] for admission to [facility] Z11.59 Encounter for screening for other viral diseases Z23 Encounter for immunization Office Visit 05/20/2015 4:20p [facility] Internal Wm Acevedo J06.9 Acute upper Kristi Davila M.D. respiratory [place] infection, unspecified Office Visit 07/31/2014 9:00a [facility] Internal Shelley V25.09 Contraceptive Medicine - Villar, M.D. Management Other [place] 780.52 Insomnia Unspecified V25.01 Oral Contraceptive Prescription Office Visit 12/12/2013 11:00a [facility] Internal Shelley Villar, V76.19 Screening Breast Medicine - M.D. Exam Malignant [place] Neoplasms Other V76.2 Screening Malignant Neoplasm Cervix V70.0 Examination General Medical Routine AT [facility] v76.2 Screening Malignant Neoplasm Cervix Office Visit 10/03/2013 4:20p [facility] Internal Shelley Villar, V70.0 Examination Medicine - M.D. General Medical [place] Routine AT [facility] 780.52 Insomnia Unspecified Office Visit 03/09/2013 3:20p [facility] Internal Shelley Villar, 780.52 Insomnia Medicine - M.D. Unspecified [place] Office Visit 02/03/2013 11:00a [facility] Internal Shelley Villar, 780.52 Insomnia Medicine - M.D. Unspecified [place] Office Visit 07/21/2012 2:20p [facility] Internal Shelley Villar, V76.2 Screening Medicine - M.D. Malignant Neoplasm [place] Cervix V76.19 Screening Breast Exam Malignant Neoplasms Other Office Visit 06/30/2012 3:00p [facility] Internal Shelley Villar, 388.8 Ear Disorders Medicine - M.D. Other [place] Plan of Treatment 05/10/2018 - Cindy Florentino MDN39.0 Urinary tract infection, site not specifiedNew Medication:Nitrofurantoin Monohyd Macro 100 mg - take one tablet every 12 hoursFollow up:Trial of AZO before starting the antibiotic
[2018-06-07 15:59] VITALS: BP 117/75
--- NOTE | 2018-06-07 16:31 | UC ---
Respiratory Complaint HPI - HPI Summary HPI Summary: 2 DAYS OF COUGH, CONGESTION, SANDOVAL, PND, FATIGUE. NO FEVER. WORKS AT [employer] AND WAS EXPOSED TO THE FLU. IS REQUESTING TO BE SWABBED. UP TO DATE FLU SHOT. - History of Current Complaint Chief Complaint: UCGeneralIllness Stated Complaint: COUGH RESP ISSUE Time Seen by Provider: 06/07/18 16:19 Hx Obtained From: Patient Hx Last Menstrual Period: 05/22/18 Onset/Duration: Gradual Onset, Lasting Days, Still Present Timing: Constant Severity Initially: Moderate Severity Currently: Moderate Pain Intensity: 4 Pain Scale Used: 0-10 Numeric Character: Cough: Nonproductive Aggravating Factors: Nothing Alleviating Factors: Nothing Associated Signs And Symptoms: Positive: URI, Nasal Congestion, Sinus Discomfort. Negative: Dyspnea, Fever, Chills - Allergies/Home Medications Allergies/Adverse Reactions: Allergies Allergy/AdvReac Type Severity Reaction Status Date / Time amoxicillin Allergy Hives Verified 06/07/18 16:00 Penicillins Allergy Difficulty Verified 06/07/18 16:00 Breathing PMH/Surg Hx/FS Hx/Imm Hx Previously Healthy: Yes - Surgical History Surgical History: None - Family History Known Family History: Positive: Non-Contributory - Social History Alcohol Use: Occasionally Substance Use Type: None Smoking Status (MU): Never Smoked Tobacco Review of Systems All Other Systems Reviewed And Are Negative: Yes Constitutional: Positive: Fatigue ENT: Positive: Sore Throat, Ear Ache, Nasal Discharge, Sinus Congestion Respiratory: Positive: Cough Cardiovascular: Positive: Negative Gastrointestinal: Positive: Negative Neurological: Positive: Headache Physical Exam Triage Information Reviewed: Yes Appearance: Well-Appearing, No Pain Distress, Well-Nourished Vital Signs: Initial Vital Signs Temp 96.7 F 06/07/18 15:54 Pulse 81 06/07/18 15:54 Resp 20 06/07/18 15:54 BP 117/75 06/07/18 15:54 Pulse Ox 100 06/07/18 15:54 Laboratory Tests 06/07/18 16:33 Influenza A (Rapid) Negative Influenza B (Rapid) Negative Vital Signs Reviewed: Yes Eyes: Positive: Conjunctiva Clear ENT: Positive: Hearing grossly normal, Pharynx normal, TMs normal Neck: Positive: Supple, Nontender, No Lymphadenopathy Respiratory Exam: Normal Cardiovascular Exam: Normal Abdomen Description: Positive: Soft Musculoskeletal: Positive: No Edema Neurological: Positive: Alert Psychological: Positive: Age Appropriate Behavior Skin: Negative: Rashes UC Diagnostic Evaluation - Laboratory O2 Sat by Pulse Oximetry: 100 Respiratory Course/Dx - Course Course Of Treatment: FLU SWAB NEGATIVE. LIKELY VIRAL URI. PT DECLINES TAMIFLU WHICH I THINK IS REASONABLE. SX WILL LIKELY RESOLVE ON THEIR OWN WITH TIME. F/U IF NEEDED. - Differential Dx/Diagnosis Provider Diagnosis: Acute URI Discharge - Sign-Out/Discharge Documenting (check all that apply): Patient Departure All imaging exams completed and their final reports reviewed: No Studies - Discharge Plan Condition: Stable Disposition: HOME Patient Education Materials: Upper Respiratory Infection (ED) Referrals: Wm Davila MD [Primary Care Provider] - If Needed Additional Instructions: FLU SWAB NEGATIVE. YOUR SYMPTOMS ARE LIKELY VIRALLY MEDIATED AND SHOULD RESOLVE ON THEIR OWN WITH TIME. NO INDICATION FOR ANTIBIOTICS AT PRESENT. YOU HAVE DECLINED PROPHYLACTIC TAMIFLU WHICH IS REASONABLE. REST, HYDRATE, OTC MEDS NEEDED. SEEK FOLLOW-UP IF YOU ARE NOT IMPROVING OVER THE NEXT 1-2 WEEKS. - Billing Disposition and Condition Condition: STABLE Disposition: Home
[2018-06-07 16:45] LABS: Influenza A Molecular NEGATIVE (Negative); Influenza B Molecular NEGATIVE (Negative)
== END 2018-06-07 16:59 | disposition home or self-care (01) ==
LOC: UCEAST 14:04
DX: J06.9 Acute upper respiratory infection, unspecified (principal); Z88.0 Allergy status to penicillin
CPT/HCPCS: 99211; G0463